=== PATIENT | female | born 1985 | race Two or more races ===

== ENCOUNTER 2017-08-28 13:52 | Day surgery (SDC) | payer OTHER ==
[2017-08-28] MEDS ORDERED: PROPOFOL 20 ML (14:49)
== END 2017-08-28 17:54 | disposition home or self-care (01) ==
LOC: GIL 13:52
DX: K29.30 Chronic superficial gastritis without bleeding (principal); E66.9 Obesity, unspecified; Z68.31 Body mass index [BMI] 31.0-31.9, adult
CPT/HCPCS: 43239; 88305; 88312